=== PATIENT | male | born 1995 | race African-American/Black ===

== ENCOUNTER 2019-05-30 08:10 | Emergency (ER) | payer MEDICAID ==
[~2019-05-30] VITALS: Ht 170.2 cm; Wt 63.0 kg
[2019-05-30 08:19] VITALS: BP 134/85
== END 2019-05-30 09:45 | disposition home or self-care (01) ==
LOC: ER 08:10
DX: G44.209 Tension-type headache, unspecified, not intractable (principal); M62.838 Other muscle spasm
CPT/HCPCS: 99283